=== PATIENT | female | born 1975 | race Two or more races ===

== ENCOUNTER 2025-05-06 10:07 | Emergency (ER) | payer BC, SELFPAY ==
--- NOTE | ~2025-05-06 | XR_ITS ---
EXAMINATION: XR ribs RT 2V DATE: 05/06/2025 10:38 INDICATION: Right rib pain post fall TECHNIQUE: 3 views of the right ribs were obtained. COMPARISON: None FINDINGS: No rib fractures identified. Right lung and visualized portion of the left lung are clear with no airspace opacities, pulmonary edema, pleural effusion or pneumothorax. Heart size is normal. IMPRESSION: 1. No rib fracture or acute cardiopulmonary disease. Reviewed, dictated and finalized at location A.
--- NOTE | ~2025-05-06 | XR_ITS ---
Examination: XR pelvis 1-2V Clinical History: FALL BACKWARDS ON STAIRS, POST RT PAIN Comparison: None Technique: AP pelvis Findings/impression: 1. No pelvic fracture or other acute abnormality identified. Reviewed, dictated and finalized at location R.
[2025-05-06 10:15] VITALS: BP 154/85; PULSE 78; RESP 16; TEMP 36.4; O2SAT 100
--- NOTE | 2025-05-06 10:22 | ED.FALL ---
HPI - Fall General Chief Complaint: Fall Stated Complaint: right side pain from fall Time Seen by Provider: 05/06/25 10:20 Source: patient, RN notes reviewed and old records reviewed Mode of arrival: ambulatory Limitations: no limitations History of Present Illness HPI Narrative: 50 year old female who presents to [facility] care with complaints of falling down 3-4 steps which are concrete covered in carpet going to her basement on Sunday evening. Patient reports that she is having pain to right flank/ hip area and to the right posterior rib area region since fall. Patient reports that she has been taking Ibuprofen and also using ice to area.Patient reports no shortness of breath or increased pain with deep breathing. Patient has slow steady gait is able to move all extremities on own power. Patient denies hitting her head or any LOC at time of fall or any precipitating dizziness. MD complaint: fall Onset (ago): day(s) (2 days ago on Sunday evening) Fall from: standing Place fall occurred: home Loss of consciousness: none Symptoms prior to fall: none Location of injury: other (right flank/hip area and right posterior ribs) Severity scale (1-10): 8 Related Data Home Medications ?Medication ?Instructions ?Recorded ?Confirmed ?Last Taken ?Type estradiol 0.025 mg/24 hr 05/06/25 Unknown History semiweekly transdermal patch (Lyllana) ibuprofen 800 mg tablet mg 05/06/25 Unknown History Allergies Allergy/AdvReac Type Severity Reaction Status Date / Time No Known Allergies Allergy Verified 05/06/25 10:22 Review of Systems Review of Systems: CONSTITUTIONAL: Denies fever, chills, or sweats. EYES: Denies visual changes, redness, or discharge. ENT: Denies rhinorrhea, congestion, sore throat, or otalgia. CARDIOVASCULAR: Denies chest pain, palpitations, or edema. RESPIRATORY: Denies cough or dyspnea. GASTROINTESTINAL: Denies abdominal pain, nausea, vomiting, or diarrhea. GENITOURINARY: Denies dysuria or hematuria. SKIN: Denies rash or itching. MUSCULOSKELETAL: reports pain to right lower back and to right hip area and also to right posterior rib region from fall, or myalgia. NEUROLOGIC: Denies headache, numbness, or weakness. PSYCHIATRIC: Denies anxiety or depression. All systems reviewed & are unremarkable except as noted in HPI and below COUNT INCLUDES THE [facility] Social History Social History (Updated 05/07/25 @ 09:06 by Radha Hatch NP) Smoking status: Unknown if ever smoked Alcohol intake: unknown Substance use type: does not use Living arrangements: with family Gender identity (if verbalized by the patient): Female Comments At time of signature, agree with nursing past medical, surgical, social and family history. There is no relevant family history pertinent to the presenting complaint Exam Narrative: GENERAL: Well-appearing, well-nourished, and in no acute distress. HEAD: Normocephalic, atraumatic. EYES: PERRLA and EOMI. ENT: Nares clear, no rhinorrhea or epistaxis. Mucous membranes moist.TM's normal throat pink with no swelling or redness. NECK: Supple. no lymphadenopathy, moves neck without difficulty CHEST: Clear to auscultation. No respiratory distress.reports right posterior rib pain from fall HEART: Regular rate and rhythm. No murmur heard. Normal peripheral pulses. ABDOMEN: Soft, nontender, nondistended, normal active bowel sounds. EXTREMITIES: Normal range of motion. No edema. Moves all extremities on own power ambulates with slow steady gait.Reports pain to right lower back and right hip area, sensation, mobility, circulation intact to right leg SKIN: Warm, dry, no rash. NEURO: No focal deficits. Alert and oriented x3. Course Course Emergency Course: Patient is aware of diagnosis, understands and agrees to treatment plan.? Anticipatory guidance given.? Patient agrees to follow-up as directed and is aware of reasons to seek care at the emergency department. Portions of this record may have been created with voice recognition software Level of Care: Express Care Visit Vital Signs Vital signs: Vital Signs Temperature 36.4 C 05/06/25 10:15 Pulse Rate 78 05/06/25 10:15 Respiratory Rate 16 05/06/25 10:15 Blood Pressure 154/85 H 05/06/25 10:15 Pulse Oximetry 100 05/06/25 10:15 Oxygen Delivery Room Air 05/06/25 10:15 Temperature 36.4 C 05/06/25 10:15 Pulse Rate 78 05/06/25 10:15 Respiratory Rate 16 05/06/25 10:15 Blood Pressure 154/85 H 05/06/25 10:15 Pulse Oximetry 100 05/06/25 10:15 Oxygen Delivery Room Air 05/06/25 10:15 Reviewed MDM - Fall Differential Diagnosis Differential diagnosis: Likely other (pain to right lower back and hip region from fall, posterior rib pain, contusion to posterior right ribs, contusion to hip) Medical Records Attestation: I reviewed the patient's medical records. Imaging Data Attestation: I personally reviewed and interpreted this imaging study as follows: My impression: no pelvic fracture or other acute abnormality, no rib fracture noted Radiologist's impression: [place] [address] XRay Report Signed Patient: Regina Hammond : 1975 MR#: [id number] Age: 50 Acct:[id number] Loc: [facility] ADM Date: 05/06/[address]: Ordering Physician: Radha Hatch APRN Date of Service: 05/06/25 Procedure(s): XR pelvis 1-2V Accession Number(s): [id number] cc: ACCOUNT SUPPORT MANAGER PHYSICIAN; Radha Hatch APRN~ Examination: XR pelvis 1-2V Clinical History: FALL BACKWARDS ON STAIRS, POST RT PAIN Comparison: None Technique: AP pelvis Findings/impression: 1. No pelvic fracture or other acute abnormality identified. Reviewed, dictated and finalized at location . Please be advised this is a medical document. It is intended for ibae-ae-jdbw communication. It is written in medical language and may contain unfamiliar abbreviations or verbiage. Medical documents are intended to carry relevant information, facts as evident, and the clinical opinion of the practitioner at the time of the encounter. This report may have been done utilizing a voice recognition system. Attempts have been made to correct errors. However, there may be uncorrected grammatical, spelling, and recognition errors present. The file time of this note does not necessarily represent the time of service. Dictated By: Pepito Quick MD 05/06/25 1044 Signed By: <Electronically signed by Pepito Quick MD in OV> [place] [address] XRay Report Signed Patient: Regina Hammond : 1975 MR#: [id number] Age: 50 Acct:[id number] Loc: [facility] ADM Date: 05/06/[address]: Ordering Physician: Radha Hatch APRN Date of Service: 05/06/25 Procedure(s): XR ribs RT Accession Number(s): [id number] cc: ACCOUNT SUPPORT MANAGER PHYSICIAN; Radha Hatch APRN~ EXAMINATION: XR ribs RT 2V DATE: 05/06/2025 10:38 INDICATION: Right rib pain post fall TECHNIQUE: 3 views of the right ribs were obtained. COMPARISON: None FINDINGS: No rib fractures identified. Right lung and visualized portion of the left lung are clear with no airspace opacities, pulmonary edema, pleural effusion or pneumothorax. Heart size is normal. IMPRESSION: 1. No rib fracture or acute cardiopulmonary disease. Reviewed, dictated and finalized at location A. Please be advised this is a medical document. It is intended for nkxl-kq-xxqu communication. It is written in medical language and may contain unfamiliar abbreviations or verbiage. Medical documents are intended to carry relevant information, facts as evident, and the clinical opinion of the practitioner at the time of the encounter. This report may have been done utilizing a voice recognition system. Attempts have been made to correct errors. However, there may be uncorrected grammatical, spelling, and recognition errors present. The file time of this note does not necessarily represent the time of service. Dictated By: Luis Alfredo Amin MD 05/06/25 1045 Signed By: <Electronically signed by Luis Alfredo Amin MD in OV> Critical Care Time Critical Care Time Critical Care Time: No Discharge Plan Discharge Clinical Impression: Contusion of right hip region Contusion of rib on right side Qualifiers: Encounter type: initial encounter Qualified Code(s): S29.8XXA - Other specified injuries of thorax, initial encounter Patient Disposition: Home Condition: Stable Instructions: Contusion in Adults (ED), Musculoskeletal Pain (ED) Additional Instructions: Tylenol for lesser pain Ibuprofen regularly for the next 2-3 days for the inflammation 600 mg 3 times daily for the next 2-3 days with food Ice and heat to the area for 20-30 minutes Gentle stretching exercises Gentle massage Caution with lifting, bending, stooping, twisting Avoid pushing, pulling Prednisone as prescribed take with food Follow-up with your PCP if not improving in 5-7 days Follow-up with orthopedic surgeon if continued pain or concerns Follow-up with PCP if further problems or concerns Ice to the area 20-30 minutes 4-6 times a day If your symptoms persist, change or worsen significantly before you can contact your personal physician then please, without delay, go to the emergency department for further evaluation. Follow-up with PCP in 7-10 days or sooner if needed Follow up with PCP soon in regards to your blood pressure which is elevated above threshold for referral. Blood pressure above 120/80 may indicate pre-hypertension. 154/85 Patient Language: Ukrainian Prescriptions: New prednisone 20 mg tablet 20 mg PO BID Qty: 10 0RF Rx Instructions: take with food No Action ibuprofen 800 mg tablet estradiol [Lyllana] 0.025 mg/24 hr patch semiweekly Follow-up/Referrals: PHYSICIAN,ACCOUNT SUPPORT MANAGER [Primary Care Provider, Internal Medicine] Time of Disposition: 11:05 Quality Blas Coma Scale Eyes: Open Verbal: Oriented and Alert Motor: Follows Commands [place] Coma Total Score: 15
--- OUTSIDE RECORDS SUMMARY | 2025-05-06 10:48 | XMS_ITS | Clinical Summary ---
Author Organization [email or web address] Address [address] [place] [address] Care Team Providers Care Oil Spot Washer Name Role Phone Unavailable Primary Care Provider Unavailabl e Source Comments [email or web address],non-owned Affiliates and Associated Physician Practices is amultiple site organization consisting of ambulatory clinics and hospital sitesin [place], [place], [place] and [place]. This disclosure is being madepursuant to the Care Everywhere program and may not contain all information available regarding this patient. Last updated 18.[email or web address] Allergies No known active allergies Medications * Be aware that medications may not be up to date on this document. Alwaysverify current medications with the patient. rosuvastatin (CRESTOR) 10 MG tablet TAKE 1 TABLET BY MOUTH EVERY DAY 05/06/2019 Active Active Problems No known active problems Social History Tobacco Use Types Packs/Day Years Used Date Smoking Tobacco: Never Comments Unknown Sex and Gender Information Value Date Recorded Sex Assigned at Not on file Legal Sex Female 10:32 AM SENIOR MANAGER QUALITY ASSURANCE Gender Identity Not on file Sexual Orientation Not on file Last Filed Vital Signs Vital Sign Reading Time Taken Comments Blood Pressure 120/74 07/22/2019 11:23 AM SENIOR MANAGER QUALITY ASSURANCE Pulse 99 07/22/2019 11:23 AM SENIOR MANAGER QUALITY ASSURANCE Temperature 37 C (98.6 F) 07/22/2019 11:23 AM SENIOR MANAGER QUALITY ASSURANCE Respiratory Rate 16 07/22/2019 11:23 AM SENIOR MANAGER QUALITY ASSURANCE Oxygen Saturation 98% 07/22/2019 11:23 AM SENIOR MANAGER QUALITY ASSURANCE Inhaled Oxygen Concentration - - Weight 72.6 kg (160 lb) 07/22/2019 11:23 AM SENIOR MANAGER QUALITY ASSURANCE Height 165.1 cm (5' 5) 07/22/2019 11:23 AM SENIOR MANAGER QUALITY ASSURANCE Body Mass Index 26.63 07/22/2019 11:23 AM SENIOR MANAGER QUALITY ASSURANCE Plan of Treatment Health Maintenance Due Date Last Done Comments COLOGUARD (AGES 45-75) - COL ON CA SCREENING 1975 COLON MONITORING 1975 COLONOSCOPY - COLON CA SCREENING 1975 CT COLONOGRAPHY - COLON CA SCREENING 1975 Colorectal Cancer Screening 1975 FIT - COLON CA SCREENING 1975 FLEX SIG - COLON CA SCREENING 1975 MAMMOGRAM 1975 HIV SCREENING 1990 HEPATITIS C SCREENING 03/14/1993 DTAP/TDAP/TD VACCINES (1 - Tdap) 1994 HEPATITIS B VACCINE (1 of 3 - 19+ 3-dose series) 1994 SCREENING FOR DIABETES 07/22/2019 DEPRESSION SCREENING 08/06/2024 PNEUMOCOCCAL VACCINE 50+ (1 of 1 - PCV) 2025 ZOSTER VACCINE (1 of 2) 2025 COVID-19 VACCINE (1 - 2023-2 5 season) 2025 INFLUENZA VACCINE (#1) 2025 7, 09/25/2016 HIB VACCINE Aged Out No longer eligi ble based on patient's age to complete this topic HPV VACCINE Aged Out No longer eligi ble based on patient's age to complete this topic MENINGOCOCCAL (Group B) VACCINE SHARED DECISION-MAKING Aged Out No longer eligible based on patient's age to complete this topic MENINGOCOCCAL GROUPS A/C/Y/W VACCINE Aged Out No longer eligible b ased on patient's age to complete this topic Insurance [employer] AN[employer]
--- OUTSIDE RECORDS SUMMARY | 2025-05-06 10:48 | XMS_ITS | Encounter Summary ---
Author Organization [facility] Address [address] [place] [address] Phone Care Team Providers Care Facilities Plant Engineer Name Role Phone Yaakov Curry MD Unavailable [phone] Provider, None Primary Care Provider Alena Cline APRN, MOLD LAMINATOR Primary Care Provider [phone] Reason for Visit * Reason Comments Medication Refill Encounter Details Date Type Department Care Team (Late st Contact Info) Description 06/10/2022 Refill [facility] - Primary Care - [address] [place] [address] Ayesha Domingo APRN, MOLD LAMINATOR [address] [place] [address] Medication Refill Social History Tobacco Use Types Packs/Day Years Used Date Smoking Tobacco: Never Smokeless Tobacco: Never Alcohol Use Standard Drinks/Week Comments Yes 0 (1 standard drink = 0.6 oz pur e alcohol) PHQ-2 Answer Date Recorded Total Score - Questions 1-9 0 08/07 Sexually Active Control Partners Comments Yes Male Condom Male Comments No Sex and Gender Information Value Date Recorded Sex Assigned at Not on file Legal Sex Female 10:55 PM CDT Gender Identity Not on file Sexual Orientation Not on file COVID-19 Exposure Response Date Recorded In the last 10 days, have yo u been in contact with someone who was confirmed or suspected to have Coronavirus/COVID-19? No / Unsure 06/09/2022 10:32 AM CDT documented as of this encounter Miscellaneous Notes * Telephone Encounter - Lexii Mesa, RN - 06/12/2022 10:45 AM CST Needs transfer of care appointment. PRESIDENT FINANCIAL documented in this encounter Plan of Treatment Not on file documented as of this encounter Visit Diagnoses Diagnosis Mixed hyperlipidemia documented in this encounter Additional Health Concerns Assessment Noted Time PHQ-9 Depression Total Score: 0 08/27/19 21 10:00 AM VICE PRESIDENT FINANCIAL documented as of this encounter Care Teams Facilities Plant Engineer Relationship Specialty Start Date End Date Provider, None [place] PCP - General 05/22/22 09/04/24 Alena Thurston APRN, MOLD LAMINATOR [address] [place] [address] PCP - General Family Medicine 09/05/24 Yaakov Curry MD Consulting Physician Obstetrics & Gynecology 01/11/17 documented as of this encounter
--- OUTSIDE RECORDS SUMMARY | 2025-05-06 10:48 | XMS_ITS | Clinical Summary ---
Author Organization [facility] Address [address] [place] [address] Phone Care Team Providers Care Cosmetics Counter Manager Name Role Phone Yaakov Curry MD Unavailable [phone] Alena Thurston APRN, MONEY MARKET DEALER Primary Care Provider [phone] Allergies No known active allergies Medications Misc Natural Products (FIBER 7 PO) Take by mouth. Activ e Colon-3 Fatty Acids (FISH OIL PO) Take by mouth. Activ e Ascorbic Acid (VITAMIN C PO) Take by mouth. Active VITAMIN D PO Take by mouth. Ac tive triamcinolone (KENALOG) 0.1 % OintmentIndication s:Contact dermatitis, unspecified contact dermatitis type, unspecified trigger Apply thin film to chest twice daily until healed. 30 g 1 02/11/20 21 Active Additional Information Patient not taking.Reported on 08/10/2021 rosuvastatin (CRESTOR) 10 MG TabletIndications: Mixed hyperlipidemia TAKE 1 TABLET BY MOUTH DAILY 30 Tablet 05/05/20 22 Active Active Problems Problem Noted Date Diagnosed Date Menorrhagia 11/23/2016 Fatigue 11/23/2016 Iron deficiency anemia 08/10/2016 Mixed hyperlipidemia 08/10/2016 Immunizations Immunization Administration Dates Next Due Covid-19, Mrna, Lnp-s, Pf, 3 0 Mcg/0.3 Ml Dose ([place]) 11/21/2020,10/31/2020 Influenza Vaccine, Quadrivalent, PF 06/04/2020,1 09/19/2016,09/25/2016 Influenza, Injectable, Mdck,quadrivalent,with Preservative 07/19/2018 PUR FLU 3+ YRS PRES FREE QUAD IM 09/25/2016 Family History Medical History Relation Name Comments Diabetes Father Stroke Father Relation Name Status Comments Father Social History Tobacco Use Types Packs/Day Years Used Date Smoking Tobacco: Never Smokeless Tobacco: Never Tobacco Cessation:Counseling Given: Yes Alcohol Use Standard Drinks/Week Comments Yes 0 [...] Sign Reading Time Taken Comments Blood Pressure 124/84 08/11/2021 11:57 AM HOSPITALITY HOST Pulse 88 08/11/2021 11:57 AM HOSPITALITY HOST Temperature 36.7 C (98.1 F) 08/11/2021 11:57 AM HOSPITALITY HOST Respiratory Rate 15 08/11/2021 11:5 7 AM HOSPITALITY HOST Oxygen Saturation 98% 08/11/2021 11: 57 AM HOSPITALITY HOST Inhaled Oxygen Concentration - - Weight 77.9 kg (171 lb 12.8 oz) 01/27/2021 4:07 PM CDT Height 166.4 cm (5' 5.5) 01/27/2021 4:07 PM CDT Body Mass Index 28.15 01/27/2021 4:07 PM CDT Plan of Treatment Health Maintenance Due Date Last Done Comments TdaP Immunization 1975 Hepatitis B Immunization (1 of 3 - 19+ 3-dose series) 1994 HPV/Cotest 2005 Cologuard 2020 Colonoscopy 2020 Colorectal Cancer Screening 2020 Immunochemical Fecal Occult Blood 2020 Cervical Cancer Screening (CCS) 01/01/2024 Pap Smear 01/01/2024 12/31/2020 Pneumococcal Immunization (50+ years) (1 of 1 - PCV) 2025 Zoster Immunization (1 of 2) 2025 Influenza Immunization (#1) 2025 10/3 , 07/19/2018, 07/19/2017, Additional history exists SARS-COV-2 Immunization ( season) 2025 12/21/2021, 11/21/2020, 10/31/2020 Mammogram 10/10/2025 10/10/2024, 1101/2023, 06/09/2022, Additional history exists Respiratory Syncytial Virus (RSV) Immunization (Adult) (1 - 1-dose 75+ series) 2050 Hepatitis C Virus (HCV) Screening Completed 08/30/2020 Discussion re Starting/Frequency of Mammograms Discontinued 10/10/2024, 06/11/2023, 06/09/2022, Additional history exists Human Papillomavirus (HPV) Immunization Aged Out No longer eligible based on patient's age to complete this topic Meningococcal Immunization (ACWY) Aged Out No longer eligible based on patient's age to complete this topic Rotavirus Immunization Aged Out No lo nger eligible based on patient's age to complete this topic Procedures Procedure Name Priority Date/Time Associated Diagnosis Comments [facility] SCREENING BILATERAL DIGITAL W CAD W SHAWANDA Routine 10/10/2024 11:07 AM HOSPITALITY HOST Visit for screening mammogram HEPATITIS C ANTIBODY Routine 08/30/2020 9:35 AM HOSPITALITY HOST Preventative health care (Adult) from Last 3 Months or Most Recently Relevant to Health Maintenance Results * [facility] SCREENING BILATERAL DIGITAL W CAD W SHAWANDA (10/10/2024 11:07 AM HOSPITALITY HOST) Anatomical Region Laterality Modality breast Bilateral Mammography 10/10/2024 11:0 4 AM HOSPITALITY HOST Narrative 10/13/2024 8:00 AM CDT - [facility] SCREENING BILATERAL DIGITAL W CAD W SHAWANDA BILATERAL DIGITAL SCREENING MAMMOGRAM 3D/2D WITH CAD WITH MEDIOLATERAL OBLIQUE CRANIOCAUDAL: 10/10/2024 The study was acquired using digital technology and interpreted from soft copy. Current study was also evaluated with ICAD version 7.2. 2D digital mammographic views, as well as 3D digital tomosynthesis were performed in the CC and MLO projections. CLINICAL: Routine screening. Patient has no complaints. Patient is sensitive to compression. No personal history of cancer. No family history of breast cancer. COMPARISONS: Comparison is made to exams dated: 06/11/2023, 06/09/2022, and 08/26/2018 [facility]. BREAST TISSUE:There are scattered areas of fibroglandular density. FINDINGS: No significant masses, calcifications, or other findings are seen in either breast. There has been no significant interval change. IMPRESSION: NEGATIVE There is no mammographic evidence of malignancy. A 1 year screening mammogram is recommended. A letter will be sent to the patient with these results. The patient will be entered into a reminder system with a target due date of 1 year for her next screening exam. Electronically signed by: George zepeda/penrad:10/10/2024 17:00:41 Gas Meter Installer Helper(s): RT Calvin(R)(M), [facility] letter sent: Normal Exam Reading location: [facility] Mammogram BI-RADS: Category 1: Negative Procedure Note George Bob MD - 10/13/2024 - [facility] SCREENING BILATERAL DIGITAL W CAD W SHAWANDA BILATERAL DIGITAL SCREENING MAMMOGRAM 3D/2D WITH CAD WITH MEDIOLATERAL OBLIQUE CRANIOCAUDAL: 10/10/2024 The study was acquired using digital technology and interpreted from soft copy. Current study was also evaluated with ICAD version 7.2. 2D digital mammographic views, as well as 3D digital tomosynthesis were performed in the CC and MLO projections. CLINICAL: Routine screening. Patient has no complaints. Patient is sensitive to compression. No personal history of cancer. No family history of breast cancer. COMPARISONS: Comparison is made to exams dated: 06/11/2023, 06/09/2022, and 08/26/2018 [facility]. BREAST TISSUE:There are scattered areas of fibroglandular density. FINDINGS: No significant masses, calcifications, or other findings are seen in either breast. There has been no significant interval change. IMPRESSION: NEGATIVE There is no mammographic evidence of malignancy. A 1 year screening mammogram is recommended. A letter will be sent to the patient with these results. The patient will be entered into a reminder system with a target due date of 1 year for her next screening exam. Electronically signed by: George zepeda/penrad:10/10/2024 17:00:41 Gas Meter Installer Helper(s): RT Calvin(R)(M), [facility] sent: Normal Exam Reading location: [facility] Mammogram BI-RADS: Category 1: Negative us Alena Bertrand PINEDA, MONEY MARKET DEALER IMG MAMMO ORDERABLES Tiffanie l Result * HEPATITIS C ANTIBODY (08/30/2020 9:35 AM HOSPITALITY HOST) hepatitis C antibody 0.11 <1 S/CO [facility] ARCH [id number] 08/30/2020 10:10 PM HOSPITALITY HOST [facility] Comment: Signal/Cutoff ratio < 0.79 is Nondetected Signal/Cutoff ratio 0.80-0.99 is Grayzone Signal/Cutoff ratio > 0.99 is Detected Supplemental assays are recommended if signal/cutoff ratio is >/=1.00. Signal/cutoff ratio result >/= 5.00 is 97% predictive of positivity for recombinant immunoblot assay (RIBA) and will be reported to the [place] Department of Public Health as required. Blood Venipuncture / Unknown 08/30/2020 9:35 AM HOSPITALITY HOST 08/30/2020 10:43 AM HOSPITALITY HOST us Yuri Manzo PAC CHEMISTRY ORDERABLES Fin al Result [facility] [address] [place] [address], from Last 3 Months or Most Recently Relevant to Health Maintenance Insurance [facility] BREAST CERVICAL CANCER Care Teams Cosmetics Counter Manager Relationship Specialty Start Date End Date Alena Thurston APRN, MONEY MARKET DEALER [address] [place] [address] [address] [place] [address] PCP - General Family Medicine 09/05/24 Yaakov Curry MD Consulting Physician Obstetrics & Gynecology 01/11/17
== END 2025-05-06 11:13 | disposition home or self-care (01) ==
PROVIDERS: Emergency Provider Registered Nurse
DX: S70.01XA Contusion of right hip, initial encounter (principal); S20.221A Contusion of right back wall of thorax, initial encounter; W10.9XXA Fall (on) (from) unspecified stairs and steps, initial encounter
CPT/HCPCS: 71100; 72170; 99204; G0463

== ENCOUNTER 2025-05-20 09:21 | Outpatient (CLI) | payer BC, SELFPAY ==
--- OUTSIDE RECORDS SUMMARY | 2025-05-20 10:25 | XMS_ITS | Encounter Summary ---
Author Organization [facility] Address [address] [place] [address] Phone Care Team Providers Care Bottler Helper Name Role Phone Yaakov Curry MD Unavailable [phone] Provider, None Primary Care Provider Alena Cline APRN, GLASS CYLINDER FLANGER Primary Care Provider [phone] Reason for Visit * Reason Comments Medication Refill Encounter Details Date Type Department Care Team (Late st Contact Info) Description 06/10/2022 Refill [facility] - Primary Care - [address] [place] [address] Ayesha Domingo APRN, GLASS CYLINDER FLANGER [address] [place] [address] Medication Refill Social History Tobacco [...] AM CST Needs transfer of care appointment. NING SUPERVISOR documented in this encounter Plan of Treatment Not on file documented as of this encounter Visit Diagnoses Diagnosis Mixed hyperlipidemia documented in this encounter Additional Health Concerns Assessment Noted Time PHQ-9 Depression Total Score: 0 08/27/19 21 10:00 AM SCANNING SUPERVISOR documented as of this encounter Care Teams Bottler Helper Relationship Specialty Start Date End Date Provider, None [place] PCP - General 05/22/22 09/04/24 Alena Thurston APRN, GLASS CYLINDER FLANGER [address] [place] [address] PCP - General Family Medicine 09/05/24 Yaakov Curry MD Consulting Physician Obstetrics & Gynecology 01/11/17 documented as of this encounter
--- OUTSIDE RECORDS SUMMARY | 2025-05-20 10:25 | XMS_ITS | Clinical Summary ---
Author Organization [facility] Address [address] [place] [address] Phone Care Team Providers Care Smelting Engineer Name Role Phone Yaakov Curry MD Unavailable [phone] Alena Thurston APRN, CASING RUNNING MACHINE TENDER Primary Care Provider [phone] Allergies No known active allergies Medications Misc Natural Products (FIBER 7 PO) Take by mouth. Activ e Duke-3 Fatty Acids (FISH OIL PO) Take by [...] Lnp-s, Pf, 3 0 Mcg/0.3 Ml Dose ([email or web address]) 11/21/2020,10/31/2020 Influenza Vaccine, Quadrivalent, PF 06/04/2020,1 09/19/2016,09/25/2016 [...] Comments Blood Pressure 124/84 08/11/2021 11:57 AM STATE DIRECTOR Pulse 88 08/11/2021 11:57 AM STATE DIRECTOR Temperature 36.7 C (98.1 F) 08/11/2021 11:57 AM STATE DIRECTOR Respiratory Rate 15 08/11/2021 11:5 7 AM STATE DIRECTOR Oxygen Saturation 98% 08/11/2021 11: 57 AM STATE DIRECTOR Inhaled Oxygen Concentration - - Weight 77.9 [...] Procedure Name Priority Date/Time Associated Diagnosis Comments [facility] SCREENING BILATERAL DIGITAL W CAD W SHAWANDA Routine 10/10/2024 11:07 AM STATE DIRECTOR Visit for screening mammogram HEPATITIS C ANTIBODY Routine 08/30/2020 9:35 AM STATE DIRECTOR Preventative health care (Adult) from Last 3 Months or Most Recently Relevant to Health Maintenance Results * TORIBIO SCREENING BILATERAL DIGITAL W CAD W SHAWANDA (10/10/2024 11:07 AM STATE DIRECTOR) Anatomical Region Laterality Modality breast Bilateral Mammography 10/10/2024 11:0 4 AM STATE DIRECTOR Narrative 10/13/2024 8:00 AM CDT - [facility] SCREENING BILATERAL DIGITAL W CAD W SHAWANDA [...] to exams dated: 06/11/2023, 06/09/2022, and 08/26/2018 [facility]. BREAST TISSUE:There are scattered areas of fibroglandular [...] exam. Electronically signed by: George zepeda/penrad:10/10/2024 17:00:41 Wire Drawing Setter(s): RT Calvin(R)(M), [facility] letter sent: Normal Exam Reading location: [facility] Mammogram BI-RADS: Category 1: Negative Procedure Note [...] to exams dated: 06/11/2023, 06/09/2022, and 08/26/2018 [facility]. BREAST TISSUE:There are scattered areas of fibroglandular [...] exam. Electronically signed by: George zepeda/penrad:10/10/2024 17:00:41 Wire Drawing Setter(s): RT Calvin(R)(M), [facility] letter sent: Normal Exam Reading location: [facility] Mammogram BI-RADS: Category 1: Negative us Alena Bertrand PINEDA, CASING RUNNING MACHINE TENDER IMG MAMMO ORDERABLES Tiffanie l Result * HEPATITIS C ANTIBODY (08/30/2020 9:35 AM STATE DIRECTOR) hepatitis C antibody 0.11 <1 S/CO [facility] ARCH [id number] B 08/30/2020 10:10 PM STATE DIRECTOR [facility] Comment: Signal/Cutoff ratio < 0.79 is Nondetected Signal/Cutoff ratio 0.80-0.99 is Grayzone Signal/Cutoff ratio > 0.99 is Detected Supplemental assays are recommended if signal/cutoff ratio is >/=1.00. Signal/cutoff ratio result >/= 5.00 is 97% predictive of positivity for recombinant immunoblot assay (RIBA) and will be reported to the [place] Department of Public [facility] as required. Blood Venipuncture / Unknown 08/30/2020 9:35 AM STATE DIRECTOR 08/30/2020 10:43 AM STATE DIRECTOR us Yuri Manzo PAC CHEMISTRY ORDERABLES Fin al Result [facility] [address] [place] [address], from Last 3 Months or Most Recently Relevant to Health Maintenance Insurance [facility] BREAST CERVICAL CANCER Care Teams Smelting Engineer Relationship Specialty Start Date End Date Alena Thurston APRN, CASING RUNNING MACHINE TENDER [address] [place] [address] [address] [place] [address] PCP - General Family Medicine 09/05/24 Yaakov Curry MD Consulting Physician Obstetrics & Gynecology 01/11/17
--- OUTSIDE RECORDS SUMMARY | 2025-05-20 10:25 | XMS_ITS | Clinical Summary ---
Author Organization [facility] Address [address] [place] [address] Care Team Providers Care Lipstick Molder Name Role Phone Unavailable Primary Care Provider Unavailabl e Source Comments [facility],non-owned Affiliates and Associated Physician Practices is amultiple site organization consisting of ambulatory clinics and hospital sitesin [place], [place], [place] and [place]. This disclosure is being madepursuant to the Care Everywhere program and may not contain all information available regarding this patient. Last updated 18.[facility] Allergies No known active allergies Medications * [...] on file Legal Sex Female 10:32 AM STEWARD/STEWARDESS CHIEF CARGO VESSEL Gender Identity Not on file Sexual Orientation Not on file Last Filed Vital Signs Vital Sign Reading Time Taken Comments Blood Pressure 120/74 07/22/2019 11:23 AM STEWARD/STEWARDESS CHIEF CARGO VESSEL Pulse 99 07/22/2019 11:23 AM STEWARD/STEWARDESS CHIEF CARGO VESSEL Temperature 37 C (98.6 F) 07/22/2019 11:23 AM STEWARD/STEWARDESS CHIEF CARGO VESSEL Respiratory Rate 16 07/22/2019 11:23 AM STEWARD/STEWARDESS CHIEF CARGO VESSEL Oxygen Saturation 98% 07/22/2019 11:23 AM STEWARD/STEWARDESS CHIEF CARGO VESSEL Inhaled Oxygen Concentration - - Weight 72.6 kg (160 lb) 07/22/2019 11:23 AM STEWARD/STEWARDESS CHIEF CARGO VESSEL Height 165.1 cm (5' 5) 07/22/2019 11:23 AM STEWARD/STEWARDESS CHIEF CARGO VESSEL Body Mass Index 26.63 07/22/2019 11:23 AM STEWARD/STEWARDESS CHIEF CARGO VESSEL Plan of Treatment Health Maintenance Due Date [...]
--- OUTSIDE RECORDS SUMMARY | 2025-05-20 10:25 | XMS_ITS | Clinical Summary ---
Author Organization [facility] Address [address] [place] [address] Care Team Providers Care Media Marketing Manager Name Role Phone Khadijah Padilla MD Primary Care Provider [phone] Allergies No known active allergies Medications Lyllana 0.025 mg/[address] 1 patch on the skin 2 (two) times a week 04/28/2025 Active progesterone (PROMETRIUM) 100 mg capsule Take 1 capsule (100 mg total) by mouth daily 03/31/2025 Active Active Problems No known active problems Encounters Date Type Department Care Team Description 05/14/2025 9:45 AM CDT Office Visit [facility] Medicine Obstetrics and Gynecology [address] [place] [address], [address] [place] [address] Joan Alcantar MD Leiomyoma (Primary Dx) 05/11/2025 Telephone [facility] Medicine Minimally Invasive Surgery [address] [place] [address] Floor [address] [place] [phone] Trinidad Mendieta 05/11/2025 Telephone [facility] Medicine Minimally Invasive Surgery [address] [place] [address] Floor [address] [place] [phone] Trinidad Mendieta Consult-10/03/04/2025 Telephone [facility] Medicine Obstetrics and Gynecology [address] [place] [address] 7th Floor [address] [place] [address] Aury Camara Scheduling Appointments (/) from Last 3 Months Social History Tobacco Use Types Packs/Day Years Used Date Smoking Tobacco: Never Assessed Comments Unknown Sex and Gender Information Value Date Recorded Sex Assigned at Not on file Legal Sex Female 4:14 PM ASSOCIATE LOAN OFFICER Gender Identity Not on file Sexual Orientation Not on file Last Filed Vital Signs Vital Sign Reading Time Taken Comments Blood Pressure 152/79 05/14/2025 9:19 AM CDT Pulse 80 05/14/2025 9:19 AM CDT Temperature 36.3 C (97.4 F) 05/14/2025 9:19 AM CDT Respiratory Rate 16 05/14/2025 9:19 AM CDT Oxygen Saturation - - Inhaled Oxygen Concentration - - Weight 75.3 kg (166 lb) 05/14/2025 9:19 AM CDT Height 167.6 cm (5' 6) 05/14/2025 9:19 AM CDT Body Mass Index 26.79 05/14/2025 9:19 AM CDT Plan of Treatment Health Maintenance Due Date Last Done Comments Cervical Cancer Screening 1975 Colon Cancer Screening-Colonoscopy 1975 Depression Screening 1975 Hepatitis C Screening 1975 DTaP/Tdap/Td Vaccine (1 - Tdap) 1986 Hepatitis B Screening 1993 Regular Well Visit/Exam 18-64 1993 Zoster Vaccine (1 of 2) 2025 Covid-19 Vaccine (4 - season) 2025 12/21/2021, 11/21/2020, 10/31/2020 Influenza Vaccine (#1) 2025 , 07/19/2018, 07/19/2017, Additional history exists Breast Cancer Screening-Mammogram 10/10/2025 10/10/2024, 10/10/2024, 06/11/2023, Additional history exists Pneumococcal vaccine <65 Aged Out No longer eligible based on patient's age to complete this topic Insurance [employer] Care Teams Media Marketing Manager Relationship Specialty Start Date End Date Khadijah Padilla MD [address] [place] [address] PCP - General Family Practice 01/14/25
[2025-05-20 18:33] LABS: Hematocrit 44.4 % (37.0-47.0); Hemoglobin 14.0 g/dL (12.0-15.0); Mean Corpuscular HGB Conc 31.5 g/dl (32-36); Mean Corpuscular Hemoglobin 26.5 pg (26-34); Mean Corpuscular Volume 83.9 fl (80-100); Platelet Count Result 341 k/mm3 (150-375); Red Blood Count 5.29 M/mm3 (4.2-5.4); White Blood Count 7.0 K/mm3 (4.5-10.0)
[2025-05-20 18:50] LABS: Alanine Aminotransferase 39 U/L (6-35); Albumin Level 4.1 g/dL (3.5-5.1); Alkaline Phosphatase 88 U/L (38-126); Anion Gap 7 mmol/L (4-12); Aspartate Amino Transferase 69 U/L (14-36); Bilirubin,Total 0.4 mg/dL (0.2-1.3); Blood Urea Nitrogen 13 mg/dL (7-17); Calcium 9.2 mg/dL (8.4-10.2); Carbon Dioxide 26 mmol/L (22-30); Chloride 103 mmol/L (98-107); Cholesterol 281 mg/dL (0-200); Estimated Glomerular Filt Rate > 60; Glucose 85 mg/dL (65-110); HDL Direct 41 mg/dL; Potassium 3.9 mmol/L (3.4-5.0); Sodium 136 mmol/L (137-145); Total Protein 7.5 g/dL (6.3-8.2); Triglycerides 283 mg/dL (<150)
[2025-05-20 19:22] LABS: Thyroid Stimulating Hormone 1.700 uIU/mL (0.465-4.680)
== END 2025-05-20 09:22 | disposition home or self-care (01) ==
LOC: ANHBWCLAB 09:21
PROVIDERS: PCP Nurse Practitioner Adult Health; Visit Provider Nurse Practitioner Adult Health
DX: Z00.00 Encounter for general adult medical examination without abnormal findings (principal)
CPT/HCPCS: 36415; 80053; 80061; 84443; 85027